=== PATIENT | female | born 1940 | race Caucasian/White ===

== ENCOUNTER → 2016-08-29 | Day surgery (SDC) | payer MEDICARE, MEDICAID ==
[2015-04-04 03:37] VITALS: BMI 39.2
[~2016-08-29] MED LIST: BSS 500 ml-Vancomycin 10 mg-Phenylephrine 1 mg Irrigation IR ONE; CHONDROITIN SULFATE 0.5 ML/PFS INTRAOC ONE; DEXAMETHASONE 4 MG/ML VIAL IV PRN; DIAZEPAM 5 MG TAB PO PRN; FENTANYL 100 MCG/2 ML VIAL IV PRN; FENTANYL 100 MCG/2 ML VIAL ONE; HYDROCODONE 5 MG/ACETAMIN 325 MG TAB PO PRN; Hyaluronate Sodium (Provisc) 5.5 mg/0.55 ml syringe INTRAOC ONE; KETOROLAC TROMETH 30 MG/ML VIAL IV PRN; LABETALOL 20 MG/4 ML SYRINGE IV PRN; LR 1,000 ML IV ONE; LR 1,000 ML IV SCH; MIDAZOLAM 2 MG/2 ML VIAL ONE; NS 1,000 ML IV SCH; NS 250 ML IV SCH; ONDANSETRON HCL 4 MG/2 ML VIAL IV PRN; PHENYLEPHRINE 2.5% OPHTH SOLN 2 ML BOT OP EYE ONE; SCOPOLAMINE TRANSDERMAL PATCH TOP PRN; TETRACAINE 0.5% 2 ML OPHTH SOLN OP EYE ONE; TETRACAINE 0.5% 2 ML OPHTH SOLN OP EYE PRN; TROPICAMIDE 1% OPHTH SOLN 2 ML BOTTLE OP EYE ONE; Vancomycin 10 MG, Phenylephrine 1,000 MCG in Balanced Salt Solution 500 ML IO ONE; hydrALAZINE 20 MG/ML VIAL IV PRN
--- NOTE | 2016-08-29 12:24 | SC.ANESEVA ---
Anesthesia Eval & Plan ([facility]) - Providers Stated Procedure: left eye cataract surgery Surgeon:: Lori Carr - Medications/Allergies Allergies: Allergies No Known Allergies Allergy (Verified 12/05/11 14:55) Home Medications: Home Medication List Carbidopa 25 mg PO TID 08/24/16 [History] Current Medication List: Reviewed - Focused Physical Exam NPO since: after Midnight Mallampati: Class II Thyromental Distance: Greater than 3 Neck: Full Range of Motion Cardiovascular/Chest: Normal Respiratory: Lungs clear Any problems with anesthesia, including nausea and vomiting?: No Prone to Motion Sickness: No Other: Diagnoses AGE-RELATED NUCLEAR CATARACT, LEFT EYE (08/29/16) Problem List Problem Status Onset Abdominal pain Acute Acute kidney injury Acute Blood loss anemia Acute Generalized weakness Acute Hypotension Acute Hypothyroidism Acute Subcutaneous hematoma Acute Urinary tract infection Acute Atrial fibrillation Chronic Allergies Allergy/AdvReac Type Severity Reaction Status Date / Time No Known Allergies Allergy Verified 12/05/11 14:55 Home Medications Medication Instructions Recorded Last Taken Type Baclofen [Lioresal] 20 mg PO HS 01/24/13 04/05/15 21:40 History CYANOCOBALAMIN (Vitamin B-12) 1,000 mcg IM .MONTHLY 01/24/13 01/27/13 History [Vitamin B-12 (cyanocobalamin)] Fluticasone Propionate [Flonase] 2 spray SUNIL HS 01/24/13 04/05/15 21:40 History Glucosamine HCl/Chondro Rogers A 1 each PO BID 01/24/13 04/02/15 History [Glucosamine Chondroitin Cap] Levothyroxine Sodium [Synthroid] 100 mcg PO DAILY 01/24/13 04/06/15 06:45 History Lisinopril [Prinivil] 10 mg PO DAILY 01/24/13 04/06/15 07:55 History Ropinirole HCl 5 mg PO TID 01/24/13 04/06/15 15:14 History Artificial Tears 300 drops OD QID 04/03/15 04/06/15 15:16 History Cholecalciferol (Vitamin D3) 50,000 unit PO QMONTH 04/03/15 Unknown History [Vitamin D3] Harrison-3 Fatty Acids/Fish Oil [Fish 1 cap PO TID 04/03/15 04/06/15 12:55 History Oil 1,000 mg Softgel] Tramadol HCl 50 mg PO BID #60 tablet 04/06/15 04/06/15 07:55 Rx Calcium Carbonate/Vitamin D3 06/28/16 Unknown History [Calcium 600-Vit D3 400 Tablet] Citalopram Hydrobromide 10 mg PO DAILY 06/28/16 Unknown History [Citalopram HBr] Docusate Sodium 100 mg PO BID PRN 06/28/16 Unknown History Gabapentin [Neurontin] 300 mg PO BID 06/28/16 Unknown History Iron Polysaccharide Complex 150 mg PO DAILY 06/28/16 Unknown History [Polysaccharide Iron 150] Loratadine [Claritin] 10 mg PO DAILY 06/28/16 Unknown History Omeprazole [Prilosec] 20 mg PO DAILY 06/28/16 Unknown History Torsemide 10 mg PO DAILY 06/28/16 Unknown History Carbidopa 25 mg PO TID 08/24/16 Unknown History Height and Weight Patient's height 5 ft 5 in Patient's weight 107.218 kg BMI 39.2 - Anesthetic Plan Anesthesia Type: MAC ASA Class: 3 - Focused Review of Systems Cardiac History: Yes: Hx Hypertension, Hx Heart Attack, Hx Cardiac Disorders, Hx Congestive Heart Failure, Hx Deep Vein Thrombosis HEENT: Yes: Hx Hearing Impairment, Cataracts, Hx Vision Problem (wears glasses) , Other HEENT Problems Respiratory: Yes: Hx Sleep Apnea (no CPAP), Hx Home O2 Gastrointestinal: Yes: Hx Gastroesophageal Reflux Disease, Hx Gastrointestinal Disorders, Hx Colonoscopy, Hx Endoscopy, Hx Esophageal Dilatation Genitourinary: Yes: Hx Renal Disease Neurological/Musculoskeletal: Yes: HX Cerebrovascular Accident, Hx Transient Ischemic Attacks (TIA), Hx Neurological Disorders Endocrine: Yes: Hx Hypothyroidism Smoking Status: Never smoker Other Surgical History: SKIN CA, MELANOMA
--- NOTE | 2016-08-29 13:20 | HIMOPRPT ---
DATE OF PROCEDURE: 08/29/16 PREOPERATIVE DIAGNOSIS: Cataract left eye. POSTOPERATIVE DIAGNOSIS: Cataract left eye. PROCEDURE: Cataract extraction by phacoemulsification of the left eye SURGEON: Lori Carr MD. ANESTHESIA: IV Sedation/Topical. COMPLICATIONS: None. PRE-OPERATIVE EVALUATION: The patient has been examined and deemed medically stable for cataract extraction with no apparent need for inpatient observation; outpatient setting is appropriate. Patient appears to be oriented to time, place and person. PROCEDURE IN DETAIL: The correct eye confirmed by patient, doctor, staff and paperwork. The operative eye was then marked by the doctor in the preoperative area. Eye drops were instilled into the operative eye to dilate the pupil. The patient was transported to the operating room and was placed in the supine position. A time out was performed before the beginning of the procedure. The operative eye was prepped and draped in the usual sterile fashion for ophthalmic surgery, taking care to isolate the lashes from the surgical field. Topical anesthetic drops were instilled into the operative eye. A lid speculum was placed. Betadine 5% was instilled in the operative eye for antiseptic. Microscope was brought into place for use throughout the case. The eye was inspected. A paracentesis incision was created with a side port knife. The temporal limbal corneal incision was performed with a madison blade. Viscoelastic was injected into the anterior chamber. Capsule forceps were used to create a capsulorhexis. Hydrodissection was performed with BSS. The nucleus was removed by phacoemulsification. Phaco time is noted below. The remaining cortical material was removed by I&A. The capsular bag was noted to be intact and distended with viscoelastic. The Intraocular lens was placed into the intact bag and centered without difficulty. The remaining viscoelastic was removed by I&A. Betadine 5% drops were placed to inspect wound and for antisepsis. Inspection revealed watertight wounds. The lid speculum was removed. Postoperative medications were instilled into the eye and a shield secured over the operative eye. IOL Type [id number] SN [id number] IOL Power 20.0 CDE 9.91 Discharge Summary: There were no complications and the patient was taken to the postoperative area in good condition. Postoperative instructions and outpatient follow up time were given.
[2016-08-29 13:22] VITALS: TEMP 97.4
[2016-08-29 13:27] VITALS: BP 97/46; PULSE 61
--- NOTE | 2016-08-29 13:27 | SC.ANESPOS ---
Post-Anesthesia Note LOC: Fully Awake Post-Anesthesia Assessment: Awake, Returned to Baseline, Hemodynamically Stable , Pain Control Adequate Phase I & II Recovery Complete: Yes Apparent Anesthesia Complication: No : N - Vital Signs Blood Pressure: 97/46 Pulse: 61 Resp Rate: 22 O2 Sat: 99 Temp: 97.4 F
== END ==
LOC: CPSC 11:06
PROVIDERS: ATTEND Ophthalmology
PROC: 08RK3JZ Replacement of Left Lens with Synthetic Substitute, Percutaneous Approach (ICD-10-PCS; principal; 2016-08-29 14:00)
DX: H25.12 Age-related nuclear cataract, left eye (principal); I10 Essential (primary) hypertension; I50.9 Heart failure, unspecified; I25.2 Old myocardial infarction; G47.30 Sleep apnea, unspecified; E03.9 Hypothyroidism, unspecified; K21.9 Gastro-esophageal reflux disease without esophagitis; F32.9 Major depressive disorder, single episode, unspecified; E66.9 Obesity, unspecified; Z95.1 Presence of aortocoronary bypass graft; Z86.73 Personal history of transient ischemic attack (TIA), and cerebral infarction without residual deficits; Z87.891 Personal history of nicotine dependence; Z68.41 Body mass index [BMI] 40.0-44.9, adult
CPT/HCPCS: 66984; A9270; J2250; J3010; V2632; J3490